=== PATIENT | female | born 1965 | race Caucasian/White ===

== ENCOUNTER 2017-02-24 16:16 | Observation (INO) | payer BC ==
[2017-02-24] MEDS ORDERED: EPINEPHrine 1 MG/ML SDV IM ONE (16:25)
[2017-02-24] MEDS ORDERED: methylPREDNISolone Sodium Succinate 125 MG/2 ML SDV IVPUSH ONE (16:25)
[2017-02-24] MEDS ORDERED: Sodium Chloride 0.9% 10 ML Syringe FLUSH PRN (16:25)
[2017-02-24] MEDS ORDERED: Sodium Chloride 0.9% 1,000 ML IV SCH (16:30)
[2017-02-24] MEDS ORDERED: Racepinephrine 2.25% 0.5 ML Neb Soln NEB ONE (17:20)
--- NOTE | 2017-02-24 17:20 | EDM.PDOC ---
ED HPI GENERAL MEDICAL PROBLEM - General Chief Complaint: Respiratory Problem Stated Complaint: COUGH Time Seen by Provider: 02/24/17 16:21 Source of Information: Reports: Patient History Limitations: Reports: No Limitations - History of Present Illness INITIAL COMMENTS - FREE TEXT/NARRATIVE: Patient arrives to the clinic with complaints of cough, shortness of breath, and feeling of throat tightening. She has history of asthma, arthritis. Denies HTN, COPD, DM II, high cholesterol, nausea, vomiting, abdominal pain. Endorses regular BM's, voiding, denies any blood to stool or urine. Endorses fever and chills. Did receive an albuterol breathing treatment in the clinic today. She denies chest pain, does have shortness of breath. No new exposures to food or medications. No recent contact with any ill persons. 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 States her "cold" started approximately 7 week ago and the coughing began today. Onset: Today Severity: Moderate Associated Symptoms: Reports: Chest Pain, Cough, Fever/Chills. Denies: cough w sputum - Related Data Allergies Allergy/AdvReac Type Severity Reaction Status Date / Time No Known Allergies Allergy Verified 02/24/17 16:41 Home Meds: Home Meds Albuterol Sulfate [Ventolin Hfa] 2 puff IH Q4H PRN 02/24/17 [History] Fluticasone/Salmeterol [Advair Diskus 250-50] 1 puff INH BID PRN 02/24/17 [ History] ED ROS GENERAL - Review of Systems Review Of Systems: See Below Constitutional: Reports: Fever, Chills HEENT: Reports: Throat Pain, Throat Swelling Respiratory: Reports: Shortness of Breath Cardiovascular: Reports: Chest Pain Endocrine: Reports: No Symptoms GI/Abdominal: Reports: No Symptoms : Reports: No Symptoms Musculoskeletal: Reports: No Symptoms Skin: Reports: No Symptoms Neurological: Reports: No Symptoms Psychiatric: Reports: No Symptoms Hematologic/Lymphatic: Reports: No Symptoms Immunologic: Reports: No Symptoms ED EXAM, GENERAL - Physical Exam Exam: See Below Exam Limited By: No Limitations General Appearance: Alert, WD/WN, Mild Distress Eye Exam: Bilateral Eye: EOMI, PERRL Ears: Normal TMs Nose: Normal Inspection Throat/Mouth: Normal Inspection, Normal Oropharynx, No Airway Compromise Head: Atraumatic, Normocephalic Neck: Supple, Non-Tender, Full Range of Motion, Lymphadenopathy (L), Lymphadenopathy (R) Respiratory/Chest: Lungs Clear, Normal Breath Sounds, No Accessory Muscle Use, Chest Non-Tender Cardiovascular: Normal Peripheral Pulses, No Edema, No Murmur, Tachycardia Peripheral Pulses: 2+: Posterior Tibial (L), Posterior Tibial (R), Dorsalis Pedis (L), Dorsalis Pedis (R) GI/Abdominal: Normal Bowel Sounds, Soft, Non-Tender Back Exam: Normal Inspection, Full Range of Motion Extremities: Normal Inspection, Normal Range of Motion, Non-Tender Neurological: Alert, Oriented, CN II-XII Intact, Normal Cognition, Normal Gait, Normal Reflexes, No Motor/Sensory Deficits Psychiatric: Normal Affect, Normal Mood Skin Exam: Warm, Dry, Intact, Normal Color Course - Radiology Interpretation Free Text/Narrative:: Chest x-ray reviewed, normal chest. - Re-Assessments/Exams Free Text/Narrative Re-Assessment/Exam: 02/24/17 18:08 Will admit upstairs for observation due to continuing complaints of throat tightness, SOB, cough. Tachycardia secondary to nebulizer tx's. Departure - Departure Time of Disposition: 18:09 Disposition: Refer to Observation Condition: Good Clinical Impression: Exacerbation of asthma - Discharge Information Instructions: Asthma, Adult
[2017-02-24 17:36] LABS: CHLORIDE,CL 104 mmol/L (98-107); SODIUM,NA 142 mmol/L (136-145)
[2017-02-24] MEDS ORDERED: cefTRIAXone 2 GM Vial IVPUSH ONE (17:39)
[2017-02-24] MEDS ORDERED: Potassium Chloride 10 MEQ Tab.ER PO ONE (17:47)
[2017-02-24] MEDS ORDERED: Albuterol/Ipratropium 3.0-0.5 MG/3 ML Neb Soln NEB ONE (17:50)
[2017-02-24] MEDS ORDERED: Ondansetron 4 MG Tab.DIS PO PRN (18:23)
[2017-02-24] MEDS ORDERED: Acetaminophen 325 MG Tab PO PRN (18:23)
[2017-02-24] MEDS ORDERED: Racepinephrine 2.25% 0.5 ML Neb Soln NEB PRN (18:27)
[2017-02-24] MEDS ORDERED: Enoxaparin 40 MG/0.4 ML Syringe SUBCUT SCH (18:30)
[2017-02-24] MEDS ORDERED: Albuterol/Ipratropium 3.0-0.5 MG/3 ML Neb Soln NEB SCH (18:30)
[2017-02-24] MEDS: Albuterol/Ipratropium 3.0-0.5 MG/3 ML Neb Soln NEB SCH ×2 (19:08→22:24)
[2017-02-24] MEDS: Amoxicillin/Clavulanate K 875-125 MG Tab PO SCH (19:35)
[2017-02-24] MEDS: Formoterol/Mometasone 200-5 MCG 8.8 GM Inhaler IH SCH (19:35)
[2017-02-24] MEDS: Sodium Chloride 0.9% with KCl 1,000 ML IV SCH ×2 (19:36→23:42)
[2017-02-24] MEDS: Enoxaparin 40 MG/0.4 ML Syringe SUBCUT SCH (19:39)
[2017-02-24] MEDS: methylPREDNISolone Sodium Succinate 125 MG/2 ML SDV IVPUSH SCH (22:25)
[2017-02-25] MEDS: Albuterol/Ipratropium 3.0-0.5 MG/3 ML Neb Soln NEB SCH ×6 (03:28→22:48)
[2017-02-25] MEDS: methylPREDNISolone Sodium Succinate 125 MG/2 ML SDV IVPUSH SCH ×4 (03:28→22:47)
[2017-02-25] MEDS: Sodium Chloride 0.9% with KCl 1,000 ML IV SCH ×2 (03:28→07:38)
[2017-02-25 07:02] LABS: CHLORIDE,CL 108 mmol/L (98-107); SODIUM,NA 139 mmol/L (136-145)
[2017-02-25] MEDS: Amoxicillin/Clavulanate K 875-125 MG Tab PO SCH ×2 (07:35→17:35)
[2017-02-25] MEDS: Formoterol/Mometasone 200-5 MCG 8.8 GM Inhaler IH SCH ×2 (07:35→19:25)
[2017-02-25] MEDS ORDERED: Magnesium Sulfate/Water 2 GM in Premix Bag 1 BAG IV ONE (09:40)
[2017-02-25] MEDS ORDERED: Iopamidol 612 MG/ML 100 ML Bottle IVPUSH ONE (13:30)
[2017-02-25] MEDS ORDERED: Iopamidol 612 MG/ML 50 ML SDV IVPUSH ONE (13:30)
[2017-02-25] MEDS ORDERED: Sodium Chloride 0.9% 100 ML IV SCH (13:30)
[2017-02-25] MEDS: Enoxaparin 40 MG/0.4 ML Syringe SUBCUT SCH (19:25)
[2017-02-26] MEDS: methylPREDNISolone Sodium Succinate 125 MG/2 ML SDV IVPUSH SCH (03:13)
[2017-02-26] MEDS: Albuterol/Ipratropium 3.0-0.5 MG/3 ML Neb Soln NEB SCH ×2 (03:13→07:15)
[2017-02-26 06:25] VITALS: BP 143/77
[2017-02-26 07:20] LABS: CHLORIDE,CL 106 mmol/L (98-107); SODIUM,NA 139 mmol/L (136-145)
--- NOTE | 2017-02-26 07:31 | PCM.PN ---
- General Info Date of Service: 02/25/17 Admission Dx/Problem (Free Text): Asthma Exacerbation Subjective Update: Patient arrived to the [facility] with complaints of cough, shortness of breath, and feeling of throat tightening. She has history of asthma, arthritis. Denies HTN, COPD, DM II, high cholesterol, nausea, vomiting , abdominal pain. Endorses regular BM's, voiding, denies any blood to stool or urine. Endorses fever and chills. Did receive an albuterol breathing treatment in the clinic yesterday without any relief of her symptoms. She denies chest pain, does have shortness of breath. No new exposures to food or medications. No recent contact with any ill persons. 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 States her "cold" started approximately 7 weeks ago and the coughing began today. Functional Status: Reports: Pain Controlled, Ambulating, Urinating Pain Score: 0 - Review of Systems General: Reports: Fever, Fatigue, Chills. Denies: Weakness Pulmonary: Reports: Shortness of Breath, Pleuritic Chest Pain, Cough. Denies: Sputum Cardiovascular: Reports: Chest Pain, Orthopnea. Denies: Palpitations, Dyspnea on Exertion Gastrointestinal: Denies: Abdominal Pain, Nausea, Vomiting Skin: Reports: No Symptoms Neurological: Reports: No Symptoms. Denies: Dizziness, Headache - Patient Data Vitals - Most Recent: Last Vital Signs Temp 38.1 C 02/26/17 06:00 Pulse 99 02/26/17 06:00 Resp 20 02/26/17 06:00 BP 143/77 H 02/26/17 06:00 Pulse Ox 98 02/26/17 06:00 Weight - Most Recent: 81.647 kg I&O - Last 24 Hours: Intake & Output 02/25/17 02/26/17 02/26/17 22:59 06:59 14:59 Intake Total 300 Output Total 1900 1000 Balance -1600 -1000 Lab Results Last 24 Hours: Laboratory Results - last 24 hr 02/25/17 02/25/17 02/26/17 Range/Units 17:15 17:15 06:47 WBC 20.7 H* (4.0-10.0) x10^3/uL RBC 3.62 L (4.00-5.50) x10^6/uL Hgb 11.3 L (12.0-16.0) g/dL Hct 33.4 (33.0-47.0) % MCV 92.3 (78.0-93.0) fL MCH 31.2 (26.0-32.0) pg MCHC 33.8 (32.0-36.0) g/dL RDW Coeff of Ashlee 12.5 (10.0-15.0) % Plt Count 231 (130-400) x10^3/uL Add Manual Diff Yes Sodium (136-145) mmol/L Potassium (3.5-5.1) mmol/L Chloride (98-107) mmol/L Carbon Dioxide (21-32) mmol/L BUN (7-18) mg/dL Creatinine (0.55-1.02) mg/dL Est Cr Clr Drug Dosing mL/min Estimated GFR (MDRD) Glucose (74-106) mg/dL Calcium (8.5-10.1) mg/dL Phosphorus (2.6-4.7) mg/dL Magnesium (1.8-2.4) mg/dL Creatine Kinase 83 (26-192) U/L Creatine Kinase Index 2.2 (0.0-4.0) % CK-MB (CK-2) 1.8 (0.0-3.6) ng/mL Troponin I < 0.017 (<=0.056) ng/mL B-Natriuretic Peptide 560 H (<=125) pg/mL 02/26/17 Range/Units 06:47 WBC (4.0-10.0) x10^3/uL RBC (4.00-5.50) x10^6/uL Hgb (12.0-16.0) g/dL Hct (33.0-47.0) % MCV (78.0-93.0) fL MCH (26.0-32.0) pg MCHC (32.0-36.0) g/dL RDW Coeff of Ashlee (10.0-15.0) % Plt Count (130-400) x10^3/uL Add Manual Diff Sodium 139 (136-145) mmol/L Potassium 4.5 (3.5-5.1) mmol/L Chloride 106 (98-107) mmol/L Carbon Dioxide 24 (21-32) mmol/L BUN 9 (7-18) mg/dL Creatinine 0.8 (0.55-1.02) mg/dL Est Cr Clr Drug Dosing 82.98 mL/min Estimated GFR (MDRD) > 60 Glucose 146 H (74-106) mg/dL Calcium 8.5 (8.5-10.1) mg/dL Phosphorus 2.9 (2.6-4.7) mg/dL Magnesium 1.7 L (1.8-2.4) mg/dL Creatine Kinase (26-192) U/L Creatine Kinase Index (0.0-4.0) % CK-MB (CK-2) (0.0-3.6) ng/mL Troponin I (<=0.056) ng/mL B-Natriuretic Peptide (<=125) pg/mL Med Orders - Current: Current Medications Acetaminophen (Tylenol) 650 mg PO Q4H PRN PRN Reason: Pain (Mild 1-3)/fever Albuterol/Ipratropium (Duoneb 3.0-0.5 Mg/3 Ml) 3 ml NEB Q4HRRT [facility] Last Admin: 02/26/17 07:15 Dose: 3 ml Amoxicillin/Clavulanate Potassium (Augmentin 875 Mg/125 Mg) 1 tab PO BIDMEALS [facility] Last Admin: 02/25/17 17:35 Dose: 1 tab Enoxaparin Sodium (Lovenox) 40 mg SUBCUT BEDTIME [facility] Last Admin: 02/25/17 19:25 Dose: 40 mg Sodium Chloride (Normal Saline) 100 mls @ 3 mls/sec IV ASDIRECTED [facility] Last Admin: 02/25/17 14:13 Dose: 3 mls/sec Methylprednisolone Sodium Succinate (Solu-Medrol) 125 mg IVPUSH Q6H [facility] Last Admin: 02/26/17 03:13 Dose: 125 mg Mometasone Furoate/Formoterol Fumar (Dulera 200-5 Mcg) 2 puff IH BID [facility] Last Admin: 02/25/17 19:25 Dose: 2 puff Ondansetron HCl (Zofran Odt) 4 mg PO Q4H PRN PRN Reason: nausea, able to take PO Racepinephrine (S-2 2.25%) 0.5 ml NEB Q2H PRN PRN Reason: Dyspnea Last Admin: 02/24/17 20:38 Dose: 0.5 ml Sodium Chloride (Saline Flush) 10 ml FLUSH ASDIRECTED PRN PRN Reason: Keep Vein Open Last Admin: 02/25/17 22:48 Dose: 10 ml Discontinued Medications Albuterol/Ipratropium (Duoneb 3.0-0.5 Mg/3 Ml) 3 ml NEB ONETIME ONE Stop: 02/24/17 17:51 Last Admin: 02/24/17 18:04 Dose: 3 ml Albuterol/Ipratropium (Duoneb 3.0-0.5 Mg/3 Ml) 3 ml NEB Q4H [facility] Last Admin: 02/24/17 18:51 Dose: Not Given Ceftriaxone Sodium (Rocephin) 2 gm IVPUSH ONETIME ONE Stop: 02/24/17 17:40 Last Admin: 02/24/17 17:54 Dose: 2 gm Enoxaparin Sodium (Lovenox) 40 mg SUBCUT DAILY [facility] Last Admin: 02/24/17 18:58 Dose: Not Given Epinephrine HCl (Adrenalin 1:1000) 0.5 mg IM ONETIME ONE Stop: 02/24/17 16:26 Last Admin: 02/24/17 16:38 Dose: 0.5 mg Sodium Chloride (Normal Saline) 1,000 mls @ 999 mls/hr IV ASDIRECTED [facility] Last Admin: 02/24/17 16:38 Dose: 999 mls/hr Potassium Chloride/Sodium Chloride (Normal Saline With 40 Meq Kcl) 1,000 mls @ 250 mls/hr IV ASDIRECTED [facility] Stop: 02/25/17 12:00 Last Admin: 02/25/17 07:38 Dose: 250 mls/hr Magnesium Sulfate 2 gm/ Premix 50 mls @ 25 mls/hr IV ONETIME ONE Stop: 02/25/17 11:39 Last Admin: 02/25/17 10:04 Dose: 25 mls/hr Iopamidol (Isovue-300 (61%)) 100 ml IVPUSH ONETIME ONE Stop: 02/25/17 13:31 Last Admin: 02/25/17 14:00 Dose: 100 ml Iopamidol (Isovue-300 (61%)) 50 ml IVPUSH ONETIME ONE Stop: 02/25/17 13:31 Last Admin: 02/25/17 14:12 Dose: 50 ml Methylprednisolone Sodium Succinate (Solu-Medrol) 125 mg IVPUSH ONETIME ONE Stop: 02/24/17 16:26 Last Admin: 02/24/17 16:38 Dose: 125 mg Potassium Chloride (Klor-Con 10) 60 meq PO ONETIME ONE Stop: 02/24/17 17:48 Last Admin: 02/24/17 17:54 Dose: 60 meq Racepinephrine (S-2 2.25%) 0.5 ml NEB ONETIME ONE Stop: 02/24/17 17:21 Last Admin: 02/24/17 17:25 Dose: 0.5 ml - Exam General: Alert, Oriented Neck: Supple Lungs: Normal Respiratory Effort, Decreased Breath Sounds, Wheezing Cardiovascular: Regular Rate, Regular Rhythm, No Murmurs GI/Abdominal Exam: Normal Bowel Sounds, Soft, Non-Tender Skin: Warm, Dry, Intact Neurological: No New Focal Deficit EKG INTERPRETATION EKG Date: 02/25/17 Time: 17:23 Rhythm: NSR Rate (Beats/Min): 87 [place]: Normal P-Wave: Present QRS: Normal ST-T: Normal QT: Normal MN/PQ Interval: 0.14 Comparison: NA - No Prior EKG EKG Interpretation Comments: 1. Sinus Rhythm 2. Possible Left Atrial Enlargement 3. Possible Right Ventricular Conduction delay - Problem List & Annotations (1) Asthma with acute exacerbation in adult SNOMED Code(s): 743887940, 207589011 Code(s): J45.901 - UNSPECIFIED ASTHMA WITH (ACUTE) EXACERBATION Status: Acute Priority: High Current Visit: Yes Onset Date: ~02/24/17 (2) SOB (shortness of breath) SNOMED Code(s): 048065912 Code(s): R06.02 - SHORTNESS OF BREATH Status: Acute Priority: High Current Visit: Yes Onset Date: ~02/24/17 (3) Leukocytosis SNOMED Code(s): 585357076, 200812416 Code(s): D72.829 - ELEVATED WHITE BLOOD CELL COUNT, UNSPECIFIED Status: Acute Current Visit: Yes Qualifiers: Leukocytosis type: unspecified Qualified Code(s): D72.829 - Elevated white blood cell count, unspecified - Problem List Review Problem List Initiated/Reviewed/Updated: Yes - My Orders Last 24 Hours: My Active Orders 02/25/17 13:10 Soft Tissue Neck w Cont [CT] Routine 02/25/17 13:11 Ang Chest [CT] Routine 02/25/17 13:30 Sodium Chloride 0.9% [Normal Saline] 100 ml IV ASDIRECTED 02/26/17 06:47 CBC WITH AUTO DIFF [HEME] Routine CRP [C-REACTIVE PROTEIN] [CHEM] Routine LACTIC ACID [CHEM] Routine MANUAL DIFFERENTIAL QA/NC [HEME] Routine - Plan Plan:: 1. IV Mag today 2. CT Soft tissue neck for continued throat swelling 3. CT chest to r/o P.E. given elevated D-Dimer 4. Check PFT's with [facility] today 5. Continue oral abx; encourage ambulation 6. Continue currently medications 7. Consider discharge to home tomorrow if labs are stable and patient continues to progress 8. Recheck Cardiac Enzymes and EKG today
[2017-02-26] MEDS: Amoxicillin/Clavulanate K 875-125 MG Tab PO SCH (07:39)
[2017-02-26] MEDS: Formoterol/Mometasone 200-5 MCG 8.8 GM Inhaler IH SCH (07:40)
--- NOTE | 2017-02-26 08:20 | PCM.DCSUM1 ---
Discharge Summary - Hospital Course HPI Initial Comments: Patient arrived from the [facility] with complaints of cough, shortness of breath, and feeling of throat tightening. She has history of asthma, arthritis. Denies HTN, COPD, DM II, high cholesterol, nausea, vomiting , abdominal pain. Endorses regular BM's, voiding, denies any blood to stool or urine. Endorses fever and chills. Did receive an albuterol breathing treatment in the clinic today. She denies chest pain, does have shortness of breath. No new exposures to food or medications. No recent contact with any ill persons. 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 States her "cold" started approximately 7 week ago and the coughing began today. Patient had an acute onset of SOB, cough, and throat swelling last Friday. Brief History: Patient admitted to obs for the past couple of days. Remained SOB , throat feeling tight, dyspnea with activity. Persistant Leukocytosis with elevated Lactic Acid. - Discharge Data Discharge Date: 02/26/17 Discharge Disposition: DC/Tfer to Acute Hospital 02 Condition: Good - Discharge Diagnosis/Problem(s) (1) Asthma with acute exacerbation in adult SNOMED Code(s): 305952314, 696220559 ICD Code: J45.901 - UNSPECIFIED ASTHMA WITH (ACUTE) EXACERBATION Status: Acute Priority: High Current Visit: Yes Onset Date: ~02/24/17 (2) SOB (shortness of breath) SNOMED Code(s): 256568438 ICD Code: R06.02 - SHORTNESS OF BREATH Status: Acute Priority: High Current Visit: Yes Onset Date: ~02/24/17 (3) Leukocytosis SNOMED Code(s): 206035832, 127418817 ICD Code: D72.829 - ELEVATED WHITE BLOOD CELL COUNT, UNSPECIFIED Status: Acute Current Visit: Yes Qualifiers: Leukocytosis type: unspecified Qualified Code(s): D72.829 - Elevated white blood cell count, unspecified (4) Orthopnea SNOMED Code(s): 69591869 ICD Code: R06.01 - ORTHOPNEA Status: Acute Priority: Medium Current Visit: Yes - Patient Summary/Data Operative Procedure(s) Performed: None Consults: Consultations 02/24/17 18:23 Respiratory Care Assess and Treatment [CONS] Routine Labs Pending at D/C: None Hospital Course: Patient remained hemodynamically stable and afebrile. Patient continues with SOB and orthopnea. Still feels weak and tired. Continued non-productive cough. Tolerating diet. No issues with urination or BM's. Pain well controlled. Considering persistent Leukocytosis, elevated Lactic Acid, patient will be transferred to [facility] for further evaluation and treatment. Case discussed with Dr. Burnette, Hospitalist. Patient accepted in transfer. All questions answered. Patient will be transferred ALS ground. - Patient Instructions Diet: Regular Diet as Tolerated Activity: As Tolerated, Rest and Relax Today Driving: Do Not Drive Showering/Bathing: May Shower Notify Provider of: Fever, Increased Pain, Nausea and/or Vomiting - Discharge Plan Home Medications: Home Meds Albuterol Sulfate [Ventolin Hfa] 2 puff IH Q4H PRN 02/24/17 [History] Fluticasone/Salmeterol [Advair Diskus 250-50] 1 puff INH BID PRN 02/24/17 [ History] Ketoconazole [Nizoral 2% Shampoo] 1 applic TOP BEDTIME PRN 02/24/17 [History] Meloxicam [Mobic] 7.5 - 15 mg PO DAILY PRN MDD 15 mg 02/24/17 [History] Amoxicillin/Clavulanate K [Augmentin 875 MG/125 MG] 1 tab PO BIDMEALS tablet [Rx] Forms: Interfacility Transfer EMTALA - Discharge Summary/Plan Comment DC Time >30 min.: Yes - General Info Date of Service: 02/26/17 Admission Dx/Problem (Free Text: Asthma Exacerbation Subjective Update: Patient arrived to the [facility] with complaints of cough, shortness of breath, and feeling of throat tightening. She has history of asthma, arthritis. Denies HTN, COPD, DM II, high cholesterol, nausea, vomiting , abdominal pain. Endorses regular BM's, voiding, denies any blood to stool or urine. Endorses fever and chills. Did receive an albuterol breathing treatment in the clinic yesterday without any relief of her symptoms. She denies chest pain, does have shortness of breath. No new exposures to food or medications. No recent contact with any ill persons. 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 States her "cold" started approximately 7 weeks ago and the coughing began today. Functional Status: Reports: Pain Controlled, Tolerating Diet, Ambulating, Urinating Numeric/FACES Score: 0 - Review of Systems General: Reports: Fever, Weakness, Fatigue, Chills Pulmonary: Reports: Shortness of Breath, Cough. Denies: Sputum Cardiovascular: Reports: Orthopnea. Denies: Chest Pain, Palpitations Gastrointestinal: Reports: No Symptoms. Denies: Abdominal Pain, Nausea, Vomiting Skin: Reports: No Symptoms Neurological: Reports: No Symptoms. Denies: Dizziness, Headache - Patient Data Vitals - Most Recent: Last Vital Signs Temp 38.1 C 02/26/17 06:00 Pulse 99 02/26/17 06:00 Resp 20 02/26/17 06:00 BP 143/77 H 02/26/17 06:00 Pulse Ox 98 02/26/17 06:00 Weight - Most Recent: 81.647 kg I&O - Last 24 hours: Intake & Output 02/25/17 02/26/17 02/26/17 22:59 06:59 14:59 Intake Total 300 Output Total 1900 1000 Balance -1600 -1000 Lab Results - Last 24 hrs: Laboratory Results - last 24 hr 02/25/17 02/25/17 02/26/17 Range/Units 17:15 17:15 06:47 WBC 20.7 H* (4.0-10.0) x10^3/uL RBC 3.62 L (4.00-5.50) x10^6/uL Hgb 11.3 L (12.0-16.0) g/dL Hct 33.4 (33.0-47.0) % MCV 92.3 (78.0-93.0) fL MCH 31.2 (26.0-32.0) pg MCHC 33.8 (32.0-36.0) g/dL RDW Coeff of Ashlee 12.5 (10.0-15.0) % Plt Count 231 (130-400) x10^3/uL Add Manual Diff Yes Neutrophils % (Manual) 95 H (50-80) % Band Neutrophils % 3 (0-6) % Lymphocytes % (Manual) 2 L (25-50) % Platelet Estimate Adequate Sodium (136-145) mmol/L Potassium (3.5-5.1) mmol/L Chloride (98-107) mmol/L Carbon Dioxide (21-32) mmol/L BUN (7-18) mg/dL Creatinine (0.55-1.02) mg/dL Est Cr Clr Drug Dosing mL/min Estimated GFR (MDRD) Glucose (74-106) mg/dL Lactic Acid (0.4-2.0) mmol/L Calcium (8.5-10.1) mg/dL Phosphorus (2.6-4.7) mg/dL Magnesium (1.8-2.4) mg/dL Creatine Kinase 83 (26-192) U/L Creatine Kinase Index 2.2 (0.0-4.0) % CK-MB (CK-2) 1.8 (0.0-3.6) ng/mL Troponin I < 0.017 (<=0.056) ng/mL C-Reactive Protein (<=0.9) mg/dL B-Natriuretic Peptide 560 H (<=125) pg/mL 02/26/17 02/26/17 02/26/17 Range/Units 06:47 06:47 06:47 WBC (4.0-10.0) x10^3/uL RBC (4.00-5.50) x10^6/uL Hgb (12.0-16.0) g/dL Hct (33.0-47.0) % MCV (78.0-93.0) fL MCH (26.0-32.0) pg MCHC (32.0-36.0) g/dL RDW Coeff of Ashlee (10.0-15.0) % Plt Count (130-400) x10^3/uL Add Manual Diff Neutrophils % (Manual) (50-80) % Band Neutrophils % (0-6) % Lymphocytes % (Manual) (25-50) % Platelet Estimate Sodium 139 (136-145) mmol/L Potassium 4.5 (3.5-5.1) mmol/L Chloride 106 (98-107) mmol/L Carbon Dioxide 24 (21-32) mmol/L BUN 9 (7-18) mg/dL Creatinine 0.8 (0.55-1.02) mg/dL Est Cr Clr Drug Dosing 82.98 mL/min Estimated GFR (MDRD) > 60 Glucose 146 H (74-106) mg/dL Lactic Acid 2.9 H (0.4-2.0) mmol/L Calcium 8.5 (8.5-10.1) mg/dL Phosphorus 2.9 (2.6-4.7) mg/dL Magnesium 1.7 L (1.8-2.4) mg/dL Creatine Kinase (26-192) U/L Creatine Kinase Index (0.0-4.0) % CK-MB (CK-2) (0.0-3.6) ng/mL Troponin I (<=0.056) ng/mL C-Reactive Protein 2.3 H (<=0.9) mg/dL B-Natriuretic Peptide (<=125) pg/mL Med Orders - Current: Current Medications Acetaminophen (Tylenol) 650 mg PO Q4H PRN PRN Reason: Pain (Mild 1-3)/fever Albuterol/Ipratropium (Duoneb 3.0-0.5 Mg/3 Ml) 3 ml NEB Q4HRRT [facility] Last Admin: 02/26/17 07:15 Dose: 3 ml Amoxicillin/Clavulanate Potassium (Augmentin 875 Mg/125 Mg) 1 tab PO BIDMEALS [facility] Last Admin: 02/26/17 07:39 Dose: 1 tab Enoxaparin Sodium (Lovenox) 40 mg SUBCUT BEDTIME [facility] Last Admin: 02/25/17 19:25 Dose: 40 mg Sodium Chloride (Normal Saline) 100 mls @ 3 mls/sec IV ASDIRECTED [facility] Last Admin: 02/25/17 14:13 Dose: 3 mls/sec Methylprednisolone Sodium Succinate (Solu-Medrol) 125 mg IVPUSH Q6H [facility] Last Admin: 02/26/17 03:13 Dose: 125 mg Mometasone Furoate/Formoterol Fumar (Dulera 200-5 Mcg) 2 puff IH BID [facility] Last Admin: 02/26/17 07:40 Dose: 2 puff Ondansetron HCl (Zofran Odt) 4 mg PO Q4H PRN PRN Reason: nausea, able to take PO Racepinephrine (S-2 2.25%) 0.5 ml NEB Q2H PRN PRN Reason: Dyspnea Last Admin: 02/24/17 20:38 Dose: 0.5 ml Sodium Chloride (Saline Flush) 10 ml FLUSH ASDIRECTED PRN PRN Reason: Keep Vein Open Last Admin: 02/25/17 22:48 Dose: 10 ml Discontinued Medications Albuterol/Ipratropium (Duoneb 3.0-0.5 Mg/3 Ml) 3 ml NEB ONETIME ONE Stop: 02/24/17 17:51 Last Admin: 02/24/17 18:04 Dose: 3 ml Albuterol/Ipratropium (Duoneb 3.0-0.5 Mg/3 Ml) 3 ml NEB Q4H [facility] Last Admin: 02/24/17 18:51 Dose: Not Given Ceftriaxone Sodium (Rocephin) 2 gm IVPUSH ONETIME ONE Stop: 02/24/17 17:40 Last Admin: 02/24/17 17:54 Dose: 2 gm Enoxaparin Sodium (Lovenox) 40 mg SUBCUT DAILY [facility] Last Admin: 02/24/17 18:58 Dose: Not Given Epinephrine HCl (Adrenalin 1:1000) 0.5 mg IM ONETIME ONE Stop: 02/24/17 16:26 Last Admin: 02/24/17 16:38 Dose: 0.5 mg Sodium Chloride (Normal Saline) 1,000 mls @ 999 mls/hr IV ASDIRECTED [facility] Last Admin: 02/24/17 16:38 Dose: 999 mls/hr Potassium Chloride/Sodium Chloride (Normal Saline With 40 Meq Kcl) 1,000 mls @ 250 mls/hr IV ASDIRECTED [facility] Stop: 02/25/17 12:00 Last Admin: 02/25/17 07:38 Dose: 250 mls/hr Magnesium Sulfate 2 gm/ Premix 50 mls @ 25 mls/hr IV ONETIME ONE Stop: 02/25/17 11:39 Last Admin: 02/25/17 10:04 Dose: 25 mls/hr Iopamidol (Isovue-300 (61%)) 100 ml IVPUSH ONETIME ONE Stop: 02/25/17 13:31 Last Admin: 02/25/17 14:00 Dose: 100 ml Iopamidol (Isovue-300 (61%)) 50 ml IVPUSH ONETIME ONE Stop: 02/25/17 13:31 Last Admin: 02/25/17 14:12 Dose: 50 ml Methylprednisolone Sodium Succinate (Solu-Medrol) 125 mg IVPUSH ONETIME ONE Stop: 02/24/17 16:26 Last Admin: 02/24/17 16:38 Dose: 125 mg Potassium Chloride (Klor-Con 10) 60 meq PO ONETIME ONE Stop: 02/24/17 17:48 Last Admin: 02/24/17 17:54 Dose: 60 meq Racepinephrine (S-2 2.25%) 0.5 ml NEB ONETIME ONE Stop: 02/24/17 17:21 Last Admin: 02/24/17 17:25 Dose: 0.5 ml - Exam General: Reports: Alert, Oriented Neck: Reports: Supple Lungs: Reports: Decreased Breath Sounds, Wheezing Cardiovascular: Reports: Regular Rate, Regular Rhythm, No Murmurs GI/Abdominal Exam: Normal Bowel Sounds, Soft, Non-Tender Skin: Reports: Warm, Dry, Intact Neurological: Reports: No New Focal Deficit, Normal Speech *Q Meaningful Use (DIS) - VTE *Q VTE Criteria *Q: - Stroke *Q Stroke Criteria *Q: - AMI *Q AMI Criteria *Q:
== END 2017-02-26 09:30 | disposition short-term general hospital (02) ==
LOC: VM.ED 16:16 → VM.MS 18:13
PROVIDERS: ADMIT Nurse Practitioner Family; ATTEND Nurse Practitioner Family
DX: J45.901 Unspecified asthma with (acute) exacerbation (principal); R06.02 Shortness of breath; D72.829 Elevated white blood cell count, unspecified; R06.01 Orthopnea; Z79.899 Other long term (current) drug therapy; Z79.2 Long term (current) use of antibiotics
CPT/HCPCS: 36415; 70491; 71020; 71275; 80048; 80053; 82550; 82553; 83605; 83735; 83880; 84100; 84443; 84484; 85025; 85379; 85610; 86140; 87081; 87880; 93005; 94060; 94640; 94760; 96361; 96365; 96366; 96372; 96375; 96376; 99285; A9270; G0378; J0171; J0696; J1650; J2930; J3480; J7030; J7050; Q9967; 96374; J3475